=== PATIENT | female | born 1975 | race Caucasian/White ===

== ENCOUNTER 2020-07-04 15:06 | Inpatient (IN) | payer MEDICARE, OTHER ==
[~2020-07-04] VITALS: Ht 165.1 cm; Wt 109.8 kg
[~2020-07-04 15:06] MED LIST: AMLODIPINE BESY10 MG PO; AUGMENTIN 875-1 EACH PO; CYCLOBENZAPRINE10 MG PO; DOXYCYCLINE HY100 MG PO; LIPITOR TAB 2020 MG PO; LOPRESSOR100 MG PO; NEURONTIN600 MG PO; NICOTINE PATCH1 EAC2 TD; PROAIR HFA8.5 GM INH; PROTONIX40 MG PO; SYNTHROID25 MCG PO; VOLTAREN EC 7575 MG PO; ZESTRIL 40 MG T40 MG PO; ZOFRAN8 MG PO
[2020-07-04 18:15] LABS: HEMOGLOBIN 13.6 gm/dl (12.3-15.3); RED BLOOD COUNT 4.57 M/UL (4.00-5.10); WHITE BLOOD COUNT 12.4 K/UL (4.5-11.0)
[2020-07-04 18:29] LABS: BUN/CREATININE RATIO 18 (0-10)
[2020-07-04] MEDS ORDERED: CELEBREX 200MG200 MG PO (18:47)
[2020-07-04] MEDS ORDERED: ROBAXIN 750 MG750 MG PO (18:48)
[2020-07-04] MEDS ORDERED: SYMBICORT 16010.2 GM INH (18:50)
[2020-07-04] MEDS ORDERED: VITAMIN B-121000 MC2 SL (19:02)
[2020-07-04] MEDS ORDERED: GARCINIA CAMBO1 EACH PO (19:03)
[2020-07-05 04:15] LABS: HEMOGLOBIN 12.7 gm/dl (12.3-15.3); RED BLOOD COUNT 4.35 M/UL (4.00-5.10)
[2020-07-05 04:29] LABS: BUN/CREATININE RATIO 15 (0-10)
[2020-07-06 04:53] LABS: RED BLOOD COUNT 4.41 M/UL (4.00-5.10); WHITE BLOOD COUNT 8.5 K/UL (4.5-11.0)
[2020-07-06 05:14] LABS: BUN/CREATININE RATIO 15 (0-10)
[2020-07-07 04:41] LABS: HEMOGLOBIN 12.4 gm/dl (12.3-15.3); RED BLOOD COUNT 4.22 M/UL (4.00-5.10); WHITE BLOOD COUNT 7.6 K/UL (4.5-11.0)
[2020-07-07 05:03] LABS: BUN/CREATININE RATIO 19 (0-10)
[2020-07-08 09:14] LABS: HEMOGLOBIN 13.1 gm/dl (12.3-15.3); WHITE BLOOD COUNT 8.2 K/UL (4.5-11.0)
[2020-07-08 09:20] LABS: RED BLOOD COUNT 4.67 M/UL (4.00-5.10)
[2020-07-08 09:23] LABS: BUN/CREATININE RATIO 21 (0-10)
--- NOTE | 2020-07-08 18:06 | NUR ---
GAVE PT INSECTIVE SPIROMETER WITH INSTRUCTION. PT DEMOSTRATED CORRECTLY. PT WAS ABLE TO GET T0 1750 10X'S. PT REFUSED TO WEAR SCD'S FOR NOW STATED THAT SHE WILL PUT THEM ON AT BEDTIME.
[2020-07-09 05:42] LABS: HEMOGLOBIN 12.7 gm/dl (12.3-15.3); RED BLOOD COUNT 4.38 M/UL (4.00-5.10)
[2020-07-09 05:46] LABS: WHITE BLOOD COUNT 12.6 K/UL (4.5-11.0)
[2020-07-09 06:13] LABS: BUN/CREATININE RATIO 31 (0-10)
[2020-07-10 06:03] LABS: RED BLOOD COUNT 4.44 M/UL (4.00-5.10); WHITE BLOOD COUNT 11.6 K/UL (4.5-11.0)
[2020-07-10 06:47] LABS: BUN/CREATININE RATIO 25 (0-10)
[2020-07-11 06:16] LABS: HEMOGLOBIN 13.4 gm/dl (12.3-15.3); RED BLOOD COUNT 4.75 M/UL (4.00-5.10); WHITE BLOOD COUNT 9.3 K/UL (4.5-11.0)
[2020-07-11 06:31] LABS: BUN/CREATININE RATIO 24 (0-10)
[2020-07-11] MEDS ORDERED: ZYVOX600 MG PO (14:06)
[2020-07-11] MEDS ORDERED: PERCOCET 5/325 T1 EA PO (14:06)
[2020-07-11] MEDS ORDERED: LEVOTHYROXINE50 MCG PO (14:06)
[2020-07-11] MEDS ORDERED: HYDROCHLOROTHIA25 MG PO (14:16)
[2020-07-11] MEDS ORDERED: K-DUR TAB 20 M20 MEQ PO (14:20)
[2020-07-11] MEDS ORDERED: GLUCOPHAGE 850850 MG PO (14:20)
--- NOTE | 2020-07-11 15:00 | NUR ---
18G X 8CM MIDLINE PLACED IN THE LEFT BASILIC VEIN UTILIZING ULTRASOUND. ASPIRATES AND FLUSHES WELL.
== END 2020-07-11 14:01 | disposition home health service (06) | DRG 579 ==
LOC: ER1 15:06 → M/S 17:36 → CDU 17:36 → M/S 20:35 → ZRECOF 07-09 16:27 → M/S 07-09 16:27
PROVIDERS: Emergency Medicine; Internal Medicine; Orthopaedic Surgery; Physician Assistant; Physician Assistant Medical; ADMIT Internal Medicine Infectious Disease
PROC: 0J9G0ZZ Drainage of Right Lower Arm Subcutaneous Tissue and Fascia, Open Approach (ICD-10-PCS; principal; 2020-07-08 17:00)
DX: L02.413 Cutaneous abscess of right upper limb (principal); J18.9 Pneumonia, unspecified organism; J96.01 Acute respiratory failure with hypoxia; Z68.41 Body mass index [BMI] 40.0-44.9, adult; J44.0 Chronic obstructive pulmonary disease with (acute) lower respiratory infection; Z20.822 Contact with and (suspected) exposure to COVID-19; E66.01 Morbid (severe) obesity due to excess calories; L03.113 Cellulitis of right upper limb; E11.65 Type 2 diabetes mellitus with hyperglycemia; L40.9 Psoriasis, unspecified; E03.9 Hypothyroidism, unspecified; G89.4 Chronic pain syndrome; M19.90 Unspecified osteoarthritis, unspecified site; I10 Essential (primary) hypertension; F17.210 Nicotine dependence, cigarettes, uncomplicated; E78.5 Hyperlipidemia, unspecified; E53.8 Deficiency of other specified B group vitamins; E11.40 Type 2 diabetes mellitus with diabetic neuropathy, unspecified; Z87.442 Personal history of urinary calculi; Z90.49 Acquired absence of other specified parts of digestive tract; Z98.51 Tubal ligation status; Z88.1 Allergy status to other antibiotic agents; Z79.899 Other long term (current) drug therapy; Z82.49 Family history of ischemic heart disease and other diseases of the circulatory system
CPT/HCPCS: ECHO; 36415; 71045; 73080; 73201; 80048; 80053; 80202; 80307; 82962; 83036; 83735; 84443; 85025; 85027; 85652; 86140; 87040; 87070; 87081; 87205; 87635; 93306; 93971; 94640; 94664; 94760; 96365; 96366; 96372; 96375; 96376; 99284; C1751; G0378; J0360; J0692; J1100; J1170; J1335; J1650; J1885; J1940; J2001; J2250; J2270; J2405; J2704; J2710; J3010; J3370; J7030; J7050; J7070; J7120; Q9967; U0002

== ENCOUNTER 2020-07-22 14:40 | Emergency (ER) | payer MEDICARE, OTHER ==
[~2020-07-22 14:40] MED LIST changes: +CELEBREX 200MG200 MG PO; +GARCINIA CAMBO1 EACH PO; +GLUCOPHAGE 850850 MG PO; +HYDROCHLOROTHIA25 MG PO; +K-DUR TAB 20 M20 MEQ PO; +LEVOTHYROXINE50 MCG PO; +PERCOCET 5/325 T1 EA PO; +ROBAXIN 750 MG750 MG PO; +SYMBICORT 16010.2 GM INH; +VITAMIN B-121000 MC2 SL; +ZYVOX600 MG PO
[2020-07-22 16:10] LABS: HEMOGLOBIN 14.4 gm/dl (12.3-15.3); RED BLOOD COUNT 5.03 M/UL (4.00-5.10); WHITE BLOOD COUNT 10.3 K/UL (4.5-11.0)
[2020-07-22 16:29] LABS: BUN/CREATININE RATIO 22 (0-10)
== END 2020-07-22 17:00 | disposition home or self-care (01) ==
LOC: ER1 14:40
PROVIDERS: Student in an Organized Health Care Education/Training Program
DX: T82.534A Leakage of infusion catheter, initial encounter (principal); I10 Essential (primary) hypertension; E11.9 Type 2 diabetes mellitus without complications; F17.210 Nicotine dependence, cigarettes, uncomplicated; Z88.1 Allergy status to other antibiotic agents; Z79.899 Other long term (current) drug therapy
CPT/HCPCS: 80053; 85025; 85652; 86140; 99283

== ENCOUNTER 2020-09-22 14:14 | Emergency (ER) | payer MEDICARE, OTHER ==
[2020-09-22 19:08] LABS: RED BLOOD COUNT 5.19 M/UL (4.00-5.10); WHITE BLOOD COUNT 9.6 K/UL (4.5-11.0)
[2020-09-22 19:23] LABS: BUN/CREATININE RATIO 18 (0-10)
== END 2020-09-22 21:50 | disposition home or self-care (01) ==
LOC: ER1 14:14
PROVIDERS: Physician Assistant Medical
DX: R10.9 Unspecified abdominal pain (principal); R82.90 Unspecified abnormal findings in urine; E11.9 Type 2 diabetes mellitus without complications; E78.5 Hyperlipidemia, unspecified; I10 Essential (primary) hypertension; F17.200 Nicotine dependence, unspecified, uncomplicated; Z90.710 Acquired absence of both cervix and uterus
CPT/HCPCS: 80053; 81001; 83690; 83880; 85025; 85379; 99284

== ENCOUNTER → 2021-10-08 | Outpatient (CLI) | payer MEDICARE, OTHER | LOC: HEART CORB 09-24 08:45 | DX: R07.2 Precordial pain (principal); R06.02 Shortness of breath | CPT/HCPCS: 78452; A9502; J2785 ==